=== PATIENT | female | born 1990 | race Caucasian/White ===

== ENCOUNTER 2020-05-26 17:52 | Emergency (ER) | payer OTHER ==
[~2020-05-26] VITALS: Ht 162.6 cm; Wt 56.7 kg
== END 2020-05-26 22:16 | disposition home or self-care (01) ==
LOC: ER 17:52 → EDBD 18:01 → ER 22:16
DX: O02.1 Missed abortion (principal); Z3A.01 Less than 8 weeks gestation of pregnancy

== ENCOUNTER 2022-07-16 10:08 | Outpatient (CLI) | payer OTHER | END 2022-07-16 10:18 | disposition home or self-care (01) | LOC: SONOGRAMA 10:08 | DX: R10.2 Pelvic and perineal pain (principal); Z03.79 Encounter for other suspected maternal and fetal conditions ruled out ==

== ENCOUNTER 2022-12-17 14:59 | Outpatient (CLI) | payer OTHER | END 2022-12-17 15:08 | disposition home or self-care (01) | LOC: SONOGRAMA 14:59 | PROVIDERS: ATTEND Internal Medicine Cardiovascular Disease | DX: Z34.91 Encounter for supervision of normal pregnancy, unspecified, first trimester (principal) ==

== ENCOUNTER 2025-02-22 09:41 | Outpatient (CLI) | payer OTHER | END 2025-02-22 09:50 | disposition home or self-care (01) | LOC: SONOGRAMA 09:41 | DX: R10.2 Pelvic and perineal pain (principal); R35.0 Frequency of micturition ==

== ENCOUNTER 2025-04-08 14:08 | Outpatient (CLI) | payer OTHER | END 2025-04-08 14:33 | disposition home or self-care (01) | LOC: SONOGRAMA 14:08 | PROVIDERS: ATTEND General Practice | DX: K81.9 Cholecystitis, unspecified (principal); R10.31 Right lower quadrant pain ==